=== PATIENT | female | born 1995 | race Caucasian/White ===

== ENCOUNTER 2019-01-21 08:18 | Inpatient (IN) | payer OTHER ==
[~2019-01-21] VITALS: Ht 160 cm; Wt 118.0 kg
[2019-01-21] MEDS ORDERED: LACTATED RINGER'S 1,000 ML IV SCH (08:27)
[2019-01-21] MEDS ORDERED: IBUPROFEN 600 MG TAB PO PRN (08:30)
[2019-01-21] MEDS ORDERED: CARBOPROST 250 MCG INJ IM PRN ×2 (08:30→12:30)
[2019-01-21] MEDS ORDERED: OXYTOCIN 30 UNITS/LR 500 ML IV PRN ×2 (08:30→12:30)
[2019-01-21] MEDS ORDERED: OXYTOCIN 30 UNITS/LR 500 ML IV SCH ×3 (08:30→12:15)
[2019-01-21] MEDS ORDERED: METHYLERGONOVINE 0.2 MG INJ IM PRN ×2 (08:30→12:30)
[2019-01-21] MEDS ORDERED: BUTORPHANOL 2 MG INJ IV PRN (08:30)
[2019-01-21] MEDS ORDERED: LIDOCAINE 1% (MPF) 30 ML INJ INJ PRN (08:30)
[2019-01-21] MEDS ORDERED: MISOPROSTOL 200 MCG TAB PR PRN ×2 (08:30→12:30)
[2019-01-21] MEDS ORDERED: AMPICILLIN 2 GM/NS (PMX) 100 ML IV ONE (08:30)
[2019-01-21 08:33] VITALS: Ht 160 cm; Wt 118.0 kg
[2019-01-21 08:36] VITALS: BP 124/85; PULSE 110; RESP 20
--- NOTE | 2019-01-21 08:36 | TRIAGE ---
OB Triage Datetime Report Generated by CPN: 01/21/2019 08:36 Datetime: 01/21/2019 08:22 Vaginal Exam Dilatation (cms): 5.5 Effacement (%): 90 Station: -2 Exam By: [email or web address],rn Datetime: 01/21/2019 08:20 Assessment Type: Triage Maternal Assessment Level of Consciousness: Keenly Alert, Responsive DTR's/Clonus: DTRs 2+; No Clonus Headache: Denies Blurred Vision: No Respiratory Effort: Unlabored; Regular Rhythm; Equal Expansion Breath Sounds, Left: Clear and Equal Breath Sounds, Right: Clear and Equal Nausea/Vomiting: Denies RUQ Epigastric Pain: Denies Lower Extremities Edema: None Degree: None Upper Extremities Edema: None Degree: None Facial Edema: None Fall Risk Assessment History of Falling: (0) No Secondary Diagnosis: (0) No Ambulatory Aid: (0) Bedrest/Nurse Assist IV Therapy: (0) No Gait: (0) Normal/Bedrest/Immobile Mental Status: (0) Oriented to Own Ability Fall Score: 0 Fall Risk Score Definition: No Risk: No action required Datetime: 01/21/2019 08:15 Chief Complaint: pt [facility] due to labor Additional Patient Complaints: none Time Provider Notified: 01/21/2019 08:23 Provider Notified: minal Initial Plan: monitor and ve
[2019-01-21] MEDS ORDERED: LACTATED RINGER'S 1,000 ML IV PRN (09:26)
--- NOTE | 2019-01-21 09:36 | PREAC ---
Date/Time of Note Date/Time of Note DATE: 01/21/19 TIME: 09:35 Anesthesia Eval and Record Evaluation Time Pre-Procedure Interview DATE: 01/21/19 TIME: 09:35 Age 23 Sex female NPO: 8 hrs Preoperative diagnosis Labor Pain Planned procedure Labor Epidural Past Medical History Past Medical History: Includes Heme: Anemia : : (4), Para: (3), Gestational age: (39) Surgery & Anesthesia Issues No known issue Meds Anticoagulation: No Beta Jolene within 24 hr: No Reason Beta Jolene not given: Pt. not on B-Jolene Current Medications Lactated Ringer's 1,000 ml @ 125 mls/hr Q8H IV Last administered on 01/21/19at 08:51; Admin Dose 125 MLS/HR; Start 01/21/19 at 08:27 Ampicillin 50 ml @ 100 mls/hr Q4H IV ; Start 01/21/19 at 12:30 Butorphanol Tartrate (Stadol) 2 mg Q2H PRN IV .PAIN SCALE 6-10; Start 01/21/19 at 08:30 Lidocaine (Xylocaine 1% (Mpf)) 30 ml ONCE PRN INJ .EPISIOTOMY; Start 01/21/19 at 08:30 Oxytocin/Lactated Ringer's 500 ml @ 500 mls/hr ONCE POST IV ; Start 01/21/19 at 08:30 Oxytocin/Lactated Ringer's 500 ml @ 125 mls/hr POST IV ; Start 01/21/19 at 08:30 Ibuprofen (Motrin) 600 mg ONCE PRN PO .PAIN 1-5; Start 01/21/19 at 08:30 Oxytocin/Lactated Ringer's 500 ml @ 0 mls/hr ONCE PRN IV .VAGINAL BLEEDING; Start 01/21/19 at 08:30 Methylergonovine Maleate (Methergine) 0.2 mg ONCE PRN IM .VAGINAL BLEEDING; Start 01/21/19 at 08:30 Carboprost Tromethamine (Hemabate) 250 mcg ONCE PRN IM .VAGINAL BLEEDING; Start 01/21/19 at 08:30 Misoprostol (Cytotec) 1,000 mcg ONCE PRN MA .VAGINAL BLEEDING; Start 01/21/19 at 08:30 Lactated Ringer's 1,000 ml @ 2,000 mls/hr Q30M PRN IV .ANESTHESIA; Start 01/21/19 at 09:26; Status UNV Meds reviewed: Yes Allergies Coded Allergies: No Known Allergy (Unverified , 01/21/19) Allergies Reviewed: Yes Labs/Studies Labs Reviewed: Reviewed by anesthesiologist Result Diagram: 01/21/19 0851 Laboratory Tests 01/21/19 08:51 Blood Bank Test 01/21/19 08:51 Antibody Screen NEGATIVE Blood Type O POSITIVE Rh Immune Globulin Candidate NO test: Positive Studies: ECG (n/a), CXR (n/a) Pre-procedure Exam Last vitals Vital Signs Date Temp Pulse Resp B/P (MAP) Pulse Ox O2 O2 Flow FiO2 Time Delivery Rate 01/21/19 97.7 110 20 124/85 Room Air 08:36 (98) Airway: Adequate mouth opening, Adequate thyromental dist Mallampati: Mallampati II Teeth: Normal Lung: Normal Heart: Normal ASA Physical Status ASA physical status: 2 Emergency: None Planned Anesthetic Neuraxial: Epidural Planned Pain Management Epidural, Parenteral pain med Pre-operative Attestations Prior to commencing anesthesia and surgery, the patient was re-evaluated, there was verification of: *The patient's identity *The results of appropriate recent lab work and preoperative vital signs *The above evaluation not changing prior to induction *Anesthetic plan, risk benefits, alternative and complications discussed with patient/family; questions answered; patient/family understands, accepts and wishes to proceed. LAMAR WADE MD Jan 21, 2019 09:36
--- NOTE | 2019-01-21 09:38 | PAC ---
Date/Time of Note Date/Time of Note DATE: 01/21/19 TIME: 09:38 Post-Anesthesia Notes Post-Anesthesia Note Last documented vital signs Vital Signs Date Temp Pulse Resp B/P (MAP) Pulse Ox O2 O2 Flow FiO2 Time Delivery Rate 01/21/19 97.7 110 20 124/85 100 Room Air 09:36 (98) Activity: WNL Respiratory function: WNL Cardiovascular function: WNL Mental status: Baseline Pain reasonably controlled: Yes Hydration appropriate: Yes Nausea/Vomiting absent: Yes LAMAR WADE MD Jan 21, 2019 09:38
[2019-01-21] MEDS ORDERED: FENTAnyl 2MCG/ML-ROPIV 0.2% 100 ML BAG EPI SCH (10:00)
[2019-01-21] MEDS ORDERED: NALOXONE (0.4 MG/ML) INJ IV PRN (10:00)
--- NOTE | 2019-01-21 10:05 | HP ---
Date/Time of Note Date/Time of Note DATE: 01/21/19 TIME: 10:04 OB - History Hx of Present Free Text/Dictation 39+ : 4 Para: 2 Care: Good Care Ultrasounds: Normal mid trimester US Medical Complications: None Past Family/Social History * Past Medical, Surgical, Family and Obstetric Histories reviewed from chart. OB Admission Exam Vital Signs Vital Signs Vital Signs Date Temp Pulse Resp B/P (MAP) Pulse Ox O2 O2 Flow FiO2 Time Delivery Rate 01/21/19 97.7 110 20 124/85 Room Air 08:36 (98) Physical Exam Abdomen: WNL Extremities: Normal Cervical Dilatation: 6cm Effacement: 75% Station: -1 Membranes: Intact Amniotic Fluid: Thin Meconium Heart Rate: 140's Accelerations: Accelerations Present Varibility: Moderate Contractions on Admission: 6-10 Minutes Apart Last 72 hours Lab Results CBC & BMP 01/21/19 08:51 OB Assessment/Plan Reason for admission: observation Other Assessment: PMH Denies PSH Denies Plan: Expectant Management BARRY MAHER M.D. Jan 21, 2019 10:05
--- NOTE | 2019-01-21 10:07 | LDN ---
Date/Time of Note Date/Time of Note DATE: 01/21/19 TIME: 10:05 Delivery Summary Weeks of Gestation 39+ Placenta Delivered: Spontaneously Meconium: Light Episiotomy: No Anesthesia type: Epidural Estimated blood loss: 200 Sponge & Needle done & correct: Yes All needle counts correct: Yes Any foreign bodies felt in the: No Delivery Information Apgars 1 Minute: 9 5 Minute: 9 Suctioning Nose & mouth suctioned at nick: Yes Delee suction performed: Yes Umbilical Cord Umbilical cord with: 3 Vessels Cord presentations: no nuchal cord Cord Blood was obtained: Yes Mother & Baby Disposition Disposition Mom & Baby to Maternity; Good: Yes Baby to NICU: No BARRY MAHER M.D. Jan 21, 2019 10:07
[2019-01-21 12:00] VITALS: BP 134/86; PULSE 74; RESP 18
[2019-01-21] MEDS ORDERED: ZOLPIDEM 5 MG TAB PO PRN (12:30)
[2019-01-21] MEDS ORDERED: NACL 0.9% 3 ML SYG IV SCH (12:30)
[2019-01-21] MEDS ORDERED: SENNA/DOCUSATE NA (8.6MG/50MG) TAB PO PRN (12:30)
[2019-01-21] MEDS: IBUPROFEN 600 MG TAB PO SCH ×3 (12:30→23:32)
[2019-01-21] MEDS ORDERED: AMPICILLIN 1 GM/NS (PMX) 50 ML IV SCH (12:30)
[2019-01-21] MEDS ORDERED: LANOLIN HPA 1 PKT TOP PRN (12:30)
[2019-01-21] MEDS ORDERED: WITCH HAZEL/GLYCERIN PAD PR PRN (12:30)
[2019-01-21] MEDS ORDERED: OXYCODONE/ASPIRIN (4.88/325) TAB PO PRN (12:30)
[2019-01-21] MEDS ORDERED: BENZOCAINE 20% 56 ML SPRAY TOP PRN (12:30)
[2019-01-21 13:00] VITALS: BP 130/75; PULSE 81; RESP 17
[2019-01-21 17:01] VITALS: BP 122/78; PULSE 92; RESP 18
[2019-01-21 19:30] VITALS: BP 109/75; PULSE 86; RESP 18
[2019-01-21] MEDS: SENNA/DOCUSATE NA (8.6MG/50MG) TAB PO SCH (20:59)
[2019-01-22 03:30] VITALS: BP 114/70; PULSE 87; RESP 19
[2019-01-22] MEDS: IBUPROFEN 600 MG TAB PO SCH ×3 (05:33→18:13)
[2019-01-22 08:00] VITALS: BP 103/65; PULSE 80; RESP 20
[2019-01-22] MEDS: SENNA/DOCUSATE NA (8.6MG/50MG) TAB PO SCH ×2 (09:19→21:16)
[2019-01-22 15:30] VITALS: BP 106/61; PULSE 94; RESP 20
--- NOTE | 2019-01-22 18:48 | PN ---
Date/Time of Note Date/Time of Note DATE: 01/22/19 TIME: 18:47 OB Subjective Subjective Subjective Subjective: Tolerating regular diet. Voiding. Ambulating. Vaginal bleeding within normal limits. Bottle feeding. Objective: Vital signs within normal limits. H/H: 10.7/31.6 General: No apparent distress. Breast: Normal. Fundus at umbilicus. Extremities nontender to palpation. Assessment/plan: 1. PPD#1-routine pp care 2. Drug abuse-social work consult 3. Anemia acute blood loss-ferrous sulfate MILESTONE,JANUARY SALMERON Jan 22, 2019 18:48
[2019-01-22 20:10] VITALS: BP 128/55; PULSE 98; RESP 18
[2019-01-22] MEDS: FERROUS SULFATE (EC) 325 MG TAB PO SCH (21:19)
[2019-01-23 02:35] VITALS: BP_SYST 98; PULSE 86; RESP 18
[2019-01-23] MEDS: IBUPROFEN 600 MG TAB PO SCH ×4 (05:28→17:38)
[2019-01-23] MEDS ORDERED: DIPHTH/TET/ACEL PERTUSS (ADULT) 0.5 ML VIAL IM* ONE (09:00)
[2019-01-23] MEDS: SENNA/DOCUSATE NA (8.6MG/50MG) TAB PO SCH (09:53)
[2019-01-23] MEDS: FERROUS SULFATE (EC) 325 MG TAB PO SCH (09:53)
--- NOTE | 2019-01-23 11:01 | QN ---
Documentation Comment PPD#2 is stable afebrile tolerates diet No VB +BM +voids Vs stable Gen NAD Abd soft NT ND Genitalia No blood at perineum --->discharge home --->precautions discussed --->Questions answered BARRY MAHER M.D. Jan 23, 2019 11:01
--- NOTE | 2019-01-23 11:01 | DS ---
Date/Time of Note Date/Time of Note DATE: 01/23/19 TIME: 11:01 Discharge Summary Admission/Discharge Info Admit Date/Time Jan 21, 2019 at 08:23 Discharge Date/Time 01/23/2019 Discharge Diagnosis Patient Condition: Good Hospital Course uneventful Primary Care Provider Not On Staff Doctor Pending Labs Laboratory Tests Test 01/23/19 08:06 White Blood Count 8.8 10^3/ul (4.8-10.8) Red Blood Count 3.90 10^6/ul (4.20-5.40) Hemoglobin 10.6 g/dl (12.0-16.0) Hematocrit 32.0 % (37.0-47.0) Mean Corpuscular Volume 82.1 fl (82.0-101.0) Mean Corpuscular Hemoglobin 27.2 pg (29.0-33.0) Mean Corpuscular Hemoglobin Concent 33.1 g/dl (32.0-37.0) Red Cell Distribution Width 14.1 % (11.5-14.5) Platelet Count 266 10^3/UL (140-415) Mean Platelet Volume 11.3 fl (7.4-10.4) Immature Granulocytes % 0.900 % (0.001-0.429) Neutrophils % 70.1 % (39.0-77.0) Lymphocytes % 23.4 % (15.0-51.0) Monocytes % 4.1 % (0.0-11.0) Eosinophils % 1.0 % (0.0-7.0) Basophils % 0.5 % (0.0-2.0) Nucleated Red Blood Cells % 0.0 /100WBC (0.0-0.0) Immature Granulocytes # 0.080 10^3/ul (0.0-0.031) Neutrophils # 6.2 10^3/ul (1.6-7.5) Lymphocytes # 2.1 10^3/ul (0.8-2.9) Monocytes # 0.4 10^3/ul (0.3-0.9) Eosinophils # 0.1 10^3/ul (0.0-0.5) Basophils # 0.0 10^3/ul (0.0-0.1) Nucleated Red Blood Cells # 0.0 10^3/ul (0.0-0.0) GHAYOORI,BARRY M.D. Jan 23, 2019 11:01
[2019-01-23 17:10] VITALS: BP 129/80; PULSE 87; RESP 18
--- NOTE | 2019-01-24 21:36 | DELSUM ---
Delivery Summary A-C Datetime Report Generated by CPN: 01/24/2019 21:36 DELIVERY PERSONNEL Electric Truck Operator: Khemanarlene, Katarina MATERNAL INFORMATION Delivery Anesthesia: Epidural Medications in Delivery: pitocin Delivery QBL (ml): 165 Placenta Cultured: No Maternal Complications: Other Other Maternal Complications: no record LABOR SUMMARY EDC: 01/25/2019 00:00 No. Babies in Womb: 1 Attempted: No Labor Anesthesia: Epidural LABOR INFORMATION Reason for Induction: Not Applicable Onset of Labor: 01/21/2019 04:00 Complete Dilatation: 01/21/2019 09:40 Group B Beta Strep: Not Done Antibiotics # of Doses: 1 Antibiotics Time of Last Dose: 01/21/2019 08:44 Steroids Given: None Reason Steroids Not Administered: Not Applicable MEMBRANES Membranes Rupture Method: Artificial Rupture of Membranes: 01/21/2019 09:27 Length of Rupture (hr): 0.32 Amniotic Fluid Color: Light Meconium Amniotic Fluid Amount: Moderate Amniotic Fluid Odor: None STAGES OF LABOR Stage 1 hr: 5 Stage 1 min: 40 Stage 2 hr: 0 Stage 2 min: 6 Stage 3 hr: 0 Stage 3 min: 7 Total Time in Labor hr: 5 Total Time in Labor min: 53 VAGINAL DELIVERY Episiotomy: None Laceration Extension: N/A Laceration Type: None Laceration Repair: No Initial Vag Sponge Count: 10 Final Vag Sponge Count: 10 Initial Vag Sharps Count: 1 Final Vag Sharps Count: 1 Sponge Count Correct: Yes; Vaginal Sweep Performed Sharps Count Correct: Yes BABY A INFORMATION Delivery Date/Time: 01/21/2019 09:46 Method of Delivery: Vaginal Born in Route : No : N/A Forceps: N/A Vacuum Extraction: N/A Shoulder Dystocia : N/A SHOULDER DYSTOCIA BABY A Infant Delivery Date/Time: 01/21/2019 09:46 PRESENTATION/POSITION BABY A Presentation: Cephalic Cephalic Presentation: Vertex Breech Presentation: N/A PLACENTA INFORMATION BABY A Placenta Delivery Time : 01/21/2019 09:53 Placenta Method of Delivery: Spontaneous Placenta Status: Delivered SCORES BABY A Heart Rate 1 min: >100 bpm Resp Effort 1 min: Good Cry Reflex Irritability 1 min: Cough/Sneeze/Pulls Away Muscle Tone 1 min: Active Motion Color 1 min: Blue/Pale Resuscitation Effort 1 min: Tactile Stimulation SCORE 1 MIN: 8 Heart Rate 5 min: >100 bpm Resp Effort 5 min: Good Cry Reflex Irritability 5 min: Cough/Sneeze/Pulls Away Muscle Tone 5 min: Active Motion Color 5 min: Body [place], Extremit Blue Resuscitation Effort 5 min: Tactile Stimulation SCORE 5 MIN: 9 INFANT INFORMATION BABY A Gestational Age at Delivery: 39.3 Gestational Status: Full Term- 39- 40.6 Weeks Outcome : Liveborn, with signs of life Condition : Stable Infant Sex: Male IDENTIFICATION/MEDS BABY A ID Band Number: [id number] ID Band Location: Right Leg; Left Arm Sensor Applied: Yes Sensor Location : Cord Clamp Vitamin K Given : Not Given Erythromycin Given: Not Given WEIGHT/LENGTH BABY A Infant Birthweight (gm): 2855 Infant Weight (lb): 6 Weight (oz): 5 Length (in): 19.50 Infant Length (cm): 49.53 CORD INFORMATION BABY A No. Cord Vessels: 3 Nuchal Cord : N/A Cord Blood Taken: Yes Suction: Mouth; Nose ASSESSMENT BABY A Infant Complications: Meconium Physical Findings at Delivery: Within Normal Limits Respirations: Appears Normal International Sourcing Manager/ALS Called : Yes Care By: RT/RN Transferred To: Remains with Mother
== END 2019-01-23 20:45 | disposition home or self-care (01) | DRG 807 ==
LOC: L-D 08:18 → OBT 08:18 → L-D 08:23 → OBT 08:23 → PP1 12:13
PROVIDERS: ADMIT Obstetrics & Gynecology; ATTEND Obstetrics & Gynecology
PROC: 10E0XZZ Delivery of Products of Conception, External Approach (ICD-10-PCS; principal; 2019-01-21)
DX: O99.323 Drug use complicating pregnancy, third trimester (principal); Z37.0 Single live birth; Z3A.39 39 weeks gestation of pregnancy
CPT/HCPCS: 62322; 80307; 81001; 85025; 85610; 85730; 86592; 86703; 86762; 86850; 86900; 86901; 87340; 88307; 90715; 99464; G0463; J0290; J2590; J7120